=== PATIENT | male | born 1995 | race African-American/Black ===

== ENCOUNTER 2017-07-22 17:49 | Emergency (ER) | payer OTHER ==
[~2017-07-22] VITALS: Ht 177.8 cm; Wt 72.6 kg
[2017-07-22 17:50] VITALS: BP 134/81
[2017-07-22] MEDS ORDERED: ADDERALL 15 MG15 MG PO (18:25)
[2017-07-22] MEDS ORDERED: IBUPROFEN 600600 M1 PO (18:28)
== END 2017-07-22 18:33 | disposition home or self-care (01) ==
LOC: ER 17:49
DX: R25.2 Cramp and spasm (principal)